=== PATIENT | male | born 1975 | race Two or more races ===

== ENCOUNTER 2018-08-13 10:28 | Outpatient (CLI) | payer OTHER | END 2018-08-13 10:37 | disposition home or self-care (01) | LOC: RAD 501 10:28 | DX: R06.02 Shortness of breath (principal); J45.40 Moderate persistent asthma, uncomplicated ==

== ENCOUNTER 2023-03-01 13:43 | Outpatient (CLI) | payer OTHER | END 2023-03-01 13:45 | disposition home or self-care (01) | LOC: LAB 13:43 | PROVIDERS: ATTEND General Practice | DX: Z20.822 Contact with and (suspected) exposure to COVID-19 (principal); A49.3 Mycoplasma infection, unspecified site; J11.1 Influenza due to unidentified influenza virus with other respiratory manifestations ==